=== PATIENT | female | born 1975 | race Caucasian/White ===

== ENCOUNTER → 2016-05-29 | Outpatient (CLI) | payer MEDICAID ==
--- NOTE | 2016-05-29 19:13 | DX ---
AP and Lateral Standing Scoliosis Series, 2 Views at 2:53 p.m. Clinical History: 40-year-old female for evaluation of scoliosis, with a prior lumbosacral arthrodesi s. Comparison Study: Lumbar spine radiographs, dated December 29, 2015. Findings: The patient has undergone posterior spinal fusion from L1 through the upper sacrum, with co rtical screws extending across the SI joints and terminating in each of the iliac bones. There are lo ngitudinally-oriented fusion rods secured by bilateral transpedicular screws. Radiopaque interbody os seous fusion material is seen at the L2-L3, L3-L4, L4-L5, and L5-S1 levels. There is a 3 mm limb-alcon th discrepancy, left greater than right. There is an upper levothoracic scoliosis measuring 11 degree s, and a middextrothoracic scoliosis measuring 11 degrees (with the genu of the curve between T4 and T7). The interpediculate distances are normal, and the vertebral body heights are maintained. There a re some surgical clips in right upper quadrant of the abdomen, which may be related to prior cholecys tectomy. Impression: 1. Status post arthrodesis from L1 through the upper sacrum and iliac bones. 2. Mild thoracic scolioses. 3. There is a 3 mm limb-length discrepancy.
== END ==
LOC: FIMAGING 14:46
PROVIDERS: ATTEND Neurological Surgery
DX: M41.24 Other idiopathic scoliosis, thoracic region (principal); Z98.1 Arthrodesis status; M21.70 Unequal limb length (acquired), unspecified site

== ENCOUNTER → 2016-10-26 | Outpatient (CLI) | payer MEDICAID | LOC: FIMAGING 14:08 | PROVIDERS: ATTEND Family Medicine | DX: Z87.42 Personal history of other diseases of the female genital tract (principal); Z90.721 Acquired absence of ovaries, unilateral ==